=== PATIENT | male | born 1960 | race Caucasian/White ===

== ENCOUNTER 2018-12-15 13:37 | Emergency (ER) | payer BC, OTHER ==
[~2018-12-15] VITALS: Ht 188 cm; Wt 100.8 kg
[2018-12-15 13:53] VITALS: BP 176/94; PULSE 106; RESP 18; Ht 188 cm; Wt 100.8 kg
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
== END 2018-12-15 15:23 | disposition home or self-care (01) ==
LOC: E/R 13:37
DX: Z48.02 Encounter for removal of sutures (principal); I10 Essential (primary) hypertension
CPT/HCPCS: 99281

== ENCOUNTER 2018-12-15 23:27 | Emergency (ER) | payer BC, OTHER ==
[~2018-12-15] VITALS: Ht 188 cm; Wt 100.8 kg
--- NOTE | 2018-12-15 23:40 | QN ---
Documentation Comment Medical screening exam initiated. Patient arrived by ambulance and will be sent to triage for further vital signs and will be seen by another provider. KRISTAL MENON MD December 15, 2018 23:40
[2018-12-15 23:52] VITALS: Ht 188 cm; Wt 100.8 kg
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
[2018-12-16 05:30] VITALS: BP 134/72; PULSE 88; RESP 17
== END 2018-12-16 10:04 | disposition home or self-care (01) ==
LOC: E/R 23:27
DX: F10.129 Alcohol abuse with intoxication, unspecified (principal); I10 Essential (primary) hypertension; R40.2142 Coma scale, eyes open, spontaneous, at arrival to emergency department; R40.2362 Coma scale, best motor response, obeys commands, at arrival to emergency department; R40.2252 Coma scale, best verbal response, oriented, at arrival to emergency department
CPT/HCPCS: 80053; 80307; 81003; 85025; 99283